=== PATIENT | female | born 1995 | race Caucasian/White ===

== ENCOUNTER 2023-09-15 18:28 | Outpatient (RCR) | payer OTHER, SELFPAY | END 2023-09-15 23:59 | disposition home or self-care (01) | LOC: RPT 18:28 | PROVIDERS: ATTENDING PHYSICIAN Nurse Practitioner; FAMILY PHYSICIAN Nurse Practitioner Family | DX: M76.12 Psoas tendinitis, left hip (principal); Z73.6 Limitation of activities due to disability; R35.0 Frequency of micturition; R10.2 Pelvic and perineal pain; M79.605 Pain in left leg; R32 Unspecified urinary incontinence | CPT/HCPCS: 97110; 97140 ==

== ENCOUNTER → 2023-11-11 06:43 | Outpatient (REF) | payer OTHER, SELFPAY | LOC: HWRAD 06:43 | PROVIDERS: ATTENDING PHYSICIAN Obstetrics & Gynecology; FAMILY PHYSICIAN Nurse Practitioner Family | DX: E03.9 Hypothyroidism, unspecified (principal) | CPT/HCPCS: 76536 ==

== ENCOUNTER 2023-11-17 18:35 | Outpatient (RCR) | payer OTHER, SELFPAY | END 2023-11-17 23:59 | disposition home or self-care (01) | LOC: RPT 18:35 | PROVIDERS: ATTENDING PHYSICIAN Nurse Practitioner; FAMILY PHYSICIAN Nurse Practitioner Family | DX: M76.12 Psoas tendinitis, left hip (principal); Z73.6 Limitation of activities due to disability; R10.2 Pelvic and perineal pain; M79.605 Pain in left leg; R32 Unspecified urinary incontinence; R35.0 Frequency of micturition | CPT/HCPCS: 97110; 97140; 97164 ==

== ENCOUNTER 2023-12-20 18:50 | Outpatient (RCR) | payer OTHER, SELFPAY | END 2023-12-20 23:59 | disposition home or self-care (01) | LOC: RPT 18:50 | PROVIDERS: ATTENDING PHYSICIAN Nurse Practitioner; FAMILY PHYSICIAN Nurse Practitioner Family | DX: M76.12 Psoas tendinitis, left hip (principal); Z73.6 Limitation of activities due to disability; R10.2 Pelvic and perineal pain; M79.605 Pain in left leg; R35.0 Frequency of micturition; R32 Unspecified urinary incontinence | CPT/HCPCS: 97110; 97140; 97530 ==

== ENCOUNTER 2024-01-24 19:15 | Outpatient (RCR) | payer OTHER, SELFPAY | END 2024-01-24 23:59 | disposition home or self-care (01) | LOC: RPT 19:15 | PROVIDERS: ATTENDING PHYSICIAN Nurse Practitioner; FAMILY PHYSICIAN Nurse Practitioner Family | DX: M76.12 Psoas tendinitis, left hip (principal); Z73.6 Limitation of activities due to disability; R10.2 Pelvic and perineal pain; M79.605 Pain in left leg; R32 Unspecified urinary incontinence; R35.0 Frequency of micturition | CPT/HCPCS: 97110; 97112; 97140 ==

== ENCOUNTER 2024-02-14 18:56 | Outpatient (RCR) | payer OTHER, SELFPAY | END 2024-02-14 23:59 | disposition home or self-care (01) | LOC: RPT 18:56 | PROVIDERS: ATTENDING PHYSICIAN Nurse Practitioner; FAMILY PHYSICIAN Nurse Practitioner Family | DX: M76.12 Psoas tendinitis, left hip (principal); Z73.6 Limitation of activities due to disability; R10.2 Pelvic and perineal pain; R35.0 Frequency of micturition; M79.605 Pain in left leg; R32 Unspecified urinary incontinence | CPT/HCPCS: 97110; 97112; 97140 ==

== ENCOUNTER 2024-03-20 19:10 | Outpatient (RCR) | payer OTHER, SELFPAY | END 2024-03-20 23:59 | disposition home or self-care (01) | LOC: RPT 19:10 | PROVIDERS: ATTENDING PHYSICIAN Nurse Practitioner; FAMILY PHYSICIAN Nurse Practitioner Family | DX: M76.12 Psoas tendinitis, left hip (principal); Z73.6 Limitation of activities due to disability; R10.2 Pelvic and perineal pain; M79.605 Pain in left leg; R32 Unspecified urinary incontinence; R35.0 Frequency of micturition | CPT/HCPCS: 97110; 97140 ==

== ENCOUNTER 2024-04-17 19:00 | Outpatient (RCR) | payer OTHER, SELFPAY | END 2024-04-17 23:59 | disposition home or self-care (01) | LOC: RPT 19:00 | PROVIDERS: ATTENDING PHYSICIAN Nurse Practitioner; FAMILY PHYSICIAN Nurse Practitioner Family | DX: M76.12 Psoas tendinitis, left hip (principal); R35.0 Frequency of micturition; R10.2 Pelvic and perineal pain; M79.605 Pain in left leg; R32 Unspecified urinary incontinence; Z73.6 Limitation of activities due to disability | CPT/HCPCS: 97110; 97112; 97140 ==

== ENCOUNTER 2024-05-01 18:54 | Outpatient (RCR) | payer OTHER, SELFPAY | END 2024-05-03 12:15 | disposition home or self-care (01) | LOC: RPT 18:54 | PROVIDERS: ATTENDING PHYSICIAN Nurse Practitioner; FAMILY PHYSICIAN Nurse Practitioner Family | DX: M76.12 Psoas tendinitis, left hip (principal); R10.2 Pelvic and perineal pain; M79.605 Pain in left leg; R32 Unspecified urinary incontinence; Z73.6 Limitation of activities due to disability; R35.0 Frequency of micturition | CPT/HCPCS: 97110; 97112; 97140 ==